=== PATIENT | female | born 1950 ===

== ENCOUNTER → 2020-03-16 | Outpatient (REF) | payer MEDICARE, OTHER ==
[2020-03-16 19:18] LABS: MALB URINE SIEMENS 8.9 MG/L; MAU/CREAT RATIO 7.4 MCG/MG (0.0-30.0)
== END ==
LOC: M LAB REF 17:19
PROVIDERS: ATTEND Nurse Practitioner Family
DX: E11.9 Type 2 diabetes mellitus without complications (principal)

== ENCOUNTER → 2021-04-22 | Outpatient (REF) | payer MEDICARE, OTHER ==
[2021-04-22 18:01] LABS: CREATININE, URINE 62.9 MG/DL; MALB URINE SIEMENS 7.3 MG/L; MAU/CREAT RATIO 11.6 MCG/MG (0.0-30.0)
== END ==
LOC: M LAB REF 17:00
PROVIDERS: ATTEND Nurse Practitioner Family
DX: E11.9 Type 2 diabetes mellitus without complications (principal)

== ENCOUNTER → 2022-04-15 | Outpatient (REF) | payer MEDICARE, OTHER ==
[2022-04-15 16:17] LABS: CREATININE, URINE 65.3 MG/DL; MAU/CREAT RATIO 9.1 MCG/MG (0.0-30.0)
== END ==
LOC: M LAB REF 14:59
PROVIDERS: ATTEND Nurse Practitioner Family
DX: E11.9 Type 2 diabetes mellitus without complications (principal)